=== PATIENT | male | born 1955 | race Caucasian/White ===

== ENCOUNTER → 2021-01-24 | Outpatient (CLI) | payer MEDICARE ==
--- NOTE | 2021-01-24 14:50 | RAD ---
Chest, PA and Lateral: Technique: PA and lateral views of the chest were obtained. History: Psoriasis. Comparison: None. Findings: Mild cardiomegaly.. Minimal bibasilar lung atelectasis.. The pleural margins are clear. Right-sided Port-A-Cath is identified. Impression: Minimal bibasilar lung atelectasis.. Electronically signed by: Iggy Samuel MD (01/24/2021 2:48 PM) [id number]
== END ==
LOC: RAD 14:26
PROVIDERS: ATTEND Physician Assistant
DX: J98.11 Atelectasis (principal); L40.0 Psoriasis vulgaris
CPT/HCPCS: 71046

== ENCOUNTER 2021-08-31 11:29 | Emergency (ER) | payer MEDICARE ==
[~2021-08-31] VITALS: Ht 175.3 cm; Wt 70.9 kg
[2021-08-31] MEDS ORDERED: ONDANSETRON PF 4 MG/2 ML VIAL. ONE (11:54)
[2021-08-31] MEDS ORDERED: HEPARIN for IV BOLUS 10,000 UNIT/10 ML VIAL. ONE (11:57)
[2021-08-31] MEDS ORDERED: HEPARIN 25,000UTS/250ML PREMIX 250 ML IV ONE (11:57)
[2021-08-31] MEDS ORDERED: HEPARIN 25,000UTS/250ML PREMIX 250 ML IV PRN (12:00)
[2021-08-31] MEDS ORDERED: HEPARIN for IV BOLUS 10,000 UNIT/10 ML VIAL. IV PRN (12:00)
[2021-08-31] MEDS ORDERED: ASPIRIN CHEWABLE 81 MG TABLET. PO ONE (12:00)
[2021-08-31] MEDS ORDERED: HEPARIN for IV BOLUS 10,000 UNIT/10 ML VIAL. IV ONE (12:00)
[2021-08-31 12:05] VITALS: BP 132/71
--- NOTE | 2021-08-31 12:06 | PHYS DOC ---
Past History Additional Past Medical Histor: pace maker, psorasis Past Surgical History: Tonsillectomy, Other Additional Past Surgical Histo: pace maker, Alcohol Use: None General Adult EDM: Chief Complaint: MULTIPLE COMPLAINTS HPI: HPI: 66-year-old male presents with chest pain. He has had chest pain for the last 3 days. He states is been getting worse so he decided come in today. It is a central heavy pressure of moderate intensity. The patient had nausea and an episode of vomiting 3 days ago but none since. He has no heart attack history. He has had pericarditis many years ago and has and on-demand pacer. Patient admits to some nausea at this time. Denies fever or chills. Review of Systems: Review of Systems: Constitutional: Denies fever or chills Eyes: Denies change in visual acuity HENT: Denies nasal congestion or sore throat Respiratory: Denies cough or shortness of breath Cardiovascular: Chest pain GI: Denies abdominal pain, nausea, vomiting, bloody stools or diarrhea : Denies dysuria Musculoskeletal: Denies back pain or joint pain Integument: Denies rash Neurologic: Denies headache, focal weakness or sensory changes Endocrine: Denies polyuria or polydipsia Lymphatic: Denies swollen glands Psychiatric: Denies depression or anxiety Current Medications: Current Meds: Current Medications Medications (Trade) Dose Ordered Sig/Rachael Start Time Stop Time Status Last Admin Dose Admin Aspirin (Aspirin Chewable) 324 mg 1X ONCE 08/31/21 12:00 08/31/21 12:01 UNV Allergies: Allergies: Allergies Coded Allergies Type Severity Reaction Last Updated Verified No Known Drug Allergies 08/31/21 No Physical Exam: PE: Constitutional: Well developed, well nourished, mild acute distress, non-toxic appearance. [] HENT: Normocephalic, atraumatic, bilateral external ears normal, oropharynx moist, no oral exudates, nose normal. [] Eyes: PERRLA, EOMI, conjunctiva normal, no discharge. [] Neck: Normal range of motion, no tenderness, supple, no stridor. [] Cardiovascular: Heart rate 99, regular rhythm, no murmur [] Lungs & Thorax: Bilateral breath sounds clear to auscultation [] Abdomen: Bowel sounds normal, soft, no tenderness, no masses, no pulsatile masses. [] Skin: Warm, dry, no erythema, no rash. [] Back: No tenderness, no CVA tenderness. [] Extremities: No tenderness, no cyanosis, no clubbing, ROM intact, no edema. [] Neurologic: Alert and oriented X 3, normal motor function, normal sensory function, no focal deficits noted. [] Psychologic: Affect normal, judgement normal, mood normal. [] Current Patient Data: Vital Signs: Vital Signs Date Time Temp Pulse Resp B/P (MAP) Pulse Ox O2 Delivery O2 Flow Rate FiO2 08/31/21 11:37 97.7 95 22 139/92 (108) 97 Room Air EKG: EKG: Sinus rhythm, rate 99, normal axis, ST depression lead I, V2, ST elevation lead 3, aVF. STEMI [] Radiology/Procedures: Radiology/Procedures: [] Heart Score: C/O Chest Pain: Yes HEART Score for Chest Pain: HEART Score for Chest Pain Response (Comments) Value History Highly Suspicious [address] Depression 2 Age > 65 2 Risk Factors 1 or 2 Risk Factors 1 Total 7 Risk Factors: Risk Factors: DM, Current or recent (<one month) smoker, HTN, HLP, family history of CAD, obesity. Risk Scores: Score 0 - 3: 2.5% MACE over next 6 weeks - Discharge Home Score 4 - 6: 20.3% MACE over next 6 weeks - Admit for Clinical Observation Score 7 - 10: 72.7% MACE over next 6 weeks - Early Invasive Strategies Course & Med Decision Making: Course & Med Decision Making Pertinent Labs and Imaging studies reviewed. (See chart for details) The patient's EKG is very concerning for inferior STEMI. We immediately gave the patient aspirin and began preparation for heparin protocol. I spoke with the spike machine feeder, Dr. Walter and he agrees this is a STEMI and has requested we activate the [facility]water [facility] Trapper and transfer the patient as soon as possible. He will go by ambulance to [facility]. [] Analilia Disclaimer: Analilia Disclaimer: This electronic medical record was generated, in whole or in part, using a voice recognition dictation system. Departure Departure: Impression: Primary Impression: STEMI (ST elevation myocardial infarction) Qualified Codes: I21.3 - ST elevation (STEMI) myocardial infarction of unspecified site Disposition: 02 SHORT TERM [facility]OSPITAL Condition: GUARDED Referrals: APURVA MCNALLY MD (PCP) BRADY WARREN DO Aug 31, 2021 12:06
[2021-08-31 12:09] LABS: BASO % 0 % (0-3); EOS % 0 % (0-3); HEMATOCRIT 48.5 % (39.0-53.0); HEMOGLOBIN 15.6 g/dL (13.0-17.5); LYMPH # 0.5 x10^3/uL (1.0-4.8); LYMPH % 3 % (24-48); MEAN CORPUSCULAR HEMOGLOBIN 28 pg (25-35); MEAN CORPUSCULAR HGB CONC 32 g/dL (31-37); MEAN CORPUSCULAR VOLUME 88 fL (79-100); MONO # 0.8 x10^3/uL (0.0-1.1); MONO % 5 % (0-9); NEUT # 16.1 x10^3uL (1.8-7.7); NEUT % 92 % (31-73); PLATELET COUNT 377 x10^3/uL (140-400); RED BLOOD COUNT 5.51 x10^6/uL (4.30-5.70); RED CELL DISTRIBUTION WIDTH 13.5 % (11.5-14.5); WHITE BLOOD COUNT 17.4 x10^3/uL (4.0-11.0)
[2021-08-31 12:34] LABS: ALBUMIN/GLOBULIN RATIO 0.9 (1.0-1.7); CALCIUM 9.5 mg/dL (8.5-10.1); CREATININE 1.7 mg/dL (0.7-1.3); GFR 40.4; POTASSIUM 4.7 mmol/L (3.5-5.1); TOTAL BILIRUBIN 0.8 mg/dL (0.2-1.0); TOTAL PROTEIN 8.4 g/dL (6.4-8.2)
[2021-08-31 12:40] LABS: % LYMPHS 4 % (24-48); % MONOS 3 % (0-10); % SEGS 93 % (35-66); PLT ESTIMATE ADEQUATE (ADEQUATE)
--- NOTE | 2021-08-31 13:18 | EKG ---
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
== END 2021-08-31 12:13 | disposition short-term general hospital (02) ==
LOC: ER 11:29
DX: I21.3 ST elevation (STEMI) myocardial infarction of unspecified site (principal); Z20.822 Contact with and (suspected) exposure to COVID-19
CPT/HCPCS: 36415; 80053; 84484; 85007; 85025; 85610; 85730; 87426; 93005; 96374; 99285; C9803; J1644; U0003; 96365; 96376